=== PATIENT | male | born 1995 | race African-American/Black ===

== ENCOUNTER 2023-03-18 14:46 | Emergency (ER) | payer SELFPAY ==
[2023-03-18] MEDS ORDERED: cefTRIAXone (ROCEPHIN) 500 MG VIAL ONE (18:15)
[2023-03-18] MEDS ORDERED: Lidocaine 2% PF 5 ML VIAL ONE (18:16)
[2023-03-18 18:30] LABS: Bilirubin Neg (Negative); Blood, Urine 25 (Negative); Clarity Cloudy (Clear); Glucose, Urine (Dipstick) Normal (Negative); Ketone, Urine Negative (Negative); Leukocyte 500 (Negative); Nitrite Negative (Negative); Protein, Urine (Dipstick) 30 mg/dl (Neg-Trace)
[2023-03-18 18:38] LABS: RBC/HPF 0-3 HPF (0-3); WBC/HPF Greater Than 50 HPF (0-3)
[2023-03-18 18:39] LABS: Bacteria/HPF Rare-Few HPF (None Seen); Mucous/LPF Rare LPF (<2+); Squamous Epithelial None Seen HPF (0-3)
[2023-03-20 10:53] LABS: Chlam.trachomatis by PCR,Urine DETECTED (NotDetected); GC N.gonorrhoeae PCR,UrineVOID DETECTED (NotDetected)
== END 2023-03-18 18:40 | disposition home or self-care (01) ==
LOC: CSHERS 14:46
DX: N34.2 Other urethritis (principal)
CPT/HCPCS: 81003; 81015; 87491; 87591; 96372; 99284; J0696; J2001

== ENCOUNTER 2023-03-27 12:04 | Emergency (ER) | payer SELFPAY ==
[2023-03-27] MEDS ORDERED: Ketorolac Tromethamine 30 MG/ML VIAL ONE (13:27)
== END 2023-03-27 14:40 | disposition home or self-care (01) ==
LOC: CSHERS 12:04
DX: S83.91XA Sprain of unspecified site of right knee, initial encounter (principal); V00.141A Fall from scooter (nonmotorized), initial encounter
CPT/HCPCS: 96372; J1885

== ENCOUNTER 2023-05-25 16:59 | Emergency (ER) | payer SELFPAY ==
[2023-05-25 17:30] LABS: Bilirubin Neg (Negative); Blood, Urine 150 (Negative); Clarity Cloudy (Clear); Glucose, Urine (Dipstick) Normal (Negative); Ketone, Urine 5 mg/dL (Negative); Leukocyte 500 (Negative); Nitrite Negative (Negative); Protein, Urine (Dipstick) 30 mg/dl (Neg-Trace); Specific Gravity, Urine 1.025 (1.005-1.030)
[2023-05-25] MEDS ORDERED: cefTRIAXone (ROCEPHIN) 500 MG VIAL ONE (17:53)
[2023-05-25 18:06] LABS: Bacteria/HPF 2+ HPF (None Seen); CAUTI Indications for Culture Pelvic or flank pain; Mucous/LPF 2+ LPF (<2+); Squamous Epithelial 0-3 HPF (0-3); WBC/HPF Greater Than 50 HPF (0-3)
[2023-05-25 18:08] LABS: Urine Culture Reflex Yes Yes
[2023-05-26 01:04] LABS: Chlam.trachomatis by PCR,Urine Not Detected (NotDetected); GC N.gonorrhoeae PCR,UrineVOID DETECTED (NotDetected)
== END 2023-05-25 18:12 | disposition home or self-care (01) ==
LOC: CSHERS 16:59
DX: R30.0 Dysuria (principal)
CPT/HCPCS: 81001; 87086; 87491; 87591; 96372; 99283; J0696